=== PATIENT | male | born 1975 | race Caucasian/White ===

== ENCOUNTER 2020-12-12 21:16 | Emergency (ER) | payer OTHER ==
[~2020-12-12 21:16] MED LIST: ADVIL200 M1 PO; BACTRIM DS TAB1 EACH PO; FLEXERIL10 MG PO; FLOMAX0.4 MG PO; IBU800 MG PO; NORCO 5-325 TA1 EACH PO; ONDANSETRON ODT4 MG PO; PAIN RELIEF650 MG PO; VOLTAREN **OUT75 MG PO
== END 2020-12-12 22:45 | disposition left against medical advice (07) ==
LOC: FER 21:16
DX: K04.7 Periapical abscess without sinus (principal); Z53.8 Procedure and treatment not carried out for other reasons

== ENCOUNTER 2021-09-28 16:07 | Emergency (ER) | payer OTHER | END 2021-09-28 21:48 | disposition home or self-care (01) | LOC: FER 16:07 | DX: S76.911A Strain of unspecified muscles, fascia and tendons at thigh level, right thigh, initial encounter (principal); F17.210 Nicotine dependence, cigarettes, uncomplicated; W10.9XXA Fall (on) (from) unspecified stairs and steps, initial encounter; Y93.89 Activity, other specified; Y92.009 Unspecified place in unspecified non-institutional (private) residence as the place of occurrence of the external cause | CPT/HCPCS: 72192; 73502; 73552 ==